=== PATIENT | male | born 1940 | race Caucasian/White ===

== ENCOUNTER 2019-07-27 11:54 | Inpatient (IN) | payer MEDICARE, OTHER, SELFPAY | END 2019-08-07 16:04 | disposition swing bed (61) | DRG 236 | PROVIDERS: Admitting Provider Thoracic Surgery (Cardiothoracic Vascular Surgery); Family Provider Pediatrics; Visit Provider Thoracic Surgery (Cardiothoracic Vascular Surgery) | DX: I25.10 Atherosclerotic heart disease of native coronary artery without angina pectoris (principal); N17.9 Acute kidney failure, unspecified; I50.22 Chronic systolic (congestive) heart failure; Z79.82 Long term (current) use of aspirin; E11.9 Type 2 diabetes mellitus without complications; Z79.84 Long term (current) use of oral hypoglycemic drugs; I48.91 Unspecified atrial fibrillation; E78.5 Hyperlipidemia, unspecified; I11.0 Hypertensive heart disease with heart failure; R00.1 Bradycardia, unspecified; Z87.891 Personal history of nicotine dependence ==

== ENCOUNTER → 2021-12-27 15:00 | Outpatient (BNVA) | payer MEDICARE, OTHER, SELFPAY | PROVIDERS: Family Provider Pediatrics; PCP Pediatrics; Visit Provider Internal Medicine Cardiovascular Disease | DX: I11.0 Hypertensive heart disease with heart failure (principal); I50.22 Chronic systolic (congestive) heart failure; I25.10 Atherosclerotic heart disease of native coronary artery without angina pectoris; Z95.1 Presence of aortocoronary bypass graft; E78.5 Hyperlipidemia, unspecified; I77.9 Disorder of arteries and arterioles, unspecified; Z87.891 Personal history of nicotine dependence | CPT/HCPCS: 99214 ==

== ENCOUNTER 2022-02-08 13:29 | Outpatient (CLI) | payer MEDICARE, OTHER, SELFPAY ==
--- NOTE | 2022-02-08 14:30 | USCV_ITS ---
Leo Orlando Age: 81 Gender: M : 1940 Exam Date: 02/08/2022 14:34 Ordering Phys: Lynette Bass MD ([email or web address]) Technologist: Vic Fried [place] [facility] [place]: carotid stenosis Risk Factors: Previous Vascular Surgery: Right Brachial BP: / Left Brachial BP: / Right Left Velocity (cm/s) Spectral Plaque Velocity (cm/s) Spectral Plaque Syst/Diast Broadening Syst/Diast Broadening 113.60/14.30 Prox CCA 101.40/ 18.70 73.90/ 16.50 Mid CCA 77.20 / 17.60 64.50/ 14.00 Distal CCA 97.00 / 15.40 100.80/12.80 Prox ICA 210.50/ 39.00 97.40/ 34.20 Mid ICA 159.20/ 34.20 101.00/33.40 Distal ICA 76.10 / 24.30 130.10 ECA 181.80 1.32 ICA/CCA 1.98 Antegrade Vertebral Antegrade 72.20/ 25.60 cm/s 48.90/ 11.70 cm/s Tri Subclavian Tri 149.9 131.5 0 0 FINDINGS Comparison:. 06/24/19. Diffuse bilateral scattered calcified plaque and intimal thickening throughout the common carotid arteries and extending through the bifurcation. Progression of plaque since the prior exams with increase in velocity. Mild bilateral carotid stenosis. Antegrade vertebral arteries. CONCLUSIONS Bilateral ICA stenosis less than 50%. Dr. Angely Gomez DO (Electronically Signed) Final Date: 08 February 2022 16:34 S
--- NOTE | 2022-02-08 15:15 | USCV_ITS ---
Leo Orlando Age: 81 Gender: M : 1940 Exam Date: 02/08/2022 14:02 Ordering Phys: Lynette Bass MD ([email or web address]) Technologist: Vic Fried Exam Location: [facility] [place] Indication: shortness of breath/ congestive heart failure BP: 118 / 58 HR: 65 Rhythm: Sinus Technical Quality: Adequate MEASUREMENTS (Male / Female) Normal Values 2D ECHO LV Diastolic Diameter PLAX 3.1 cm 4.2 - 5.9 / 3.9 - 5.3 cm LV Systolic Diameter PLAX 2.1 cm IVS Diastolic Thickness 1.1 cm 0.6 - 1.0 / 0.6 - 0.9 cm IVS Systolic Thickness 1.1 cm LVPW Diastolic Thickness 1.1 cm 0.6 - 1.0 / 0.6 - 0.9 cm LVPW Systolic Thickness 1.5 cm LVOT Diameter 2.2 cm LV Ejection Fraction 2D Teich 64.7 % LV Ejection Fraction MOD 2C 60.4 % LV Ejection Fraction 2C AL 59.7 % LA Diameter 3.1 cm LA Width 3.7 cm LA Height 4.7 cm RA Width 3.5 cm RA Height 5.4 cm Aorta at Sinotubular Diameter 4.0 cm IVC Diameter 1.4 cm M-MODE Aortic Annulus Diameter 3.2 cm LA Ao Ratio MM 1.0 MV E Point Septal Separation 0.9 cm DOPPLER AV Peak Velocity 146.8 cm/s LVOT Peak Velocity 109.0 cm/s AV Area Cont Eq vti 2.8 cm squared AV Area Cont Eq pk 2.8 cm squared MV Peak Velocity 127.0 cm/s MV Area PHT 3.7 cm squared Mitral E to A Ratio 0.7 MV E' Velocity 39.0 cm/s Mitral E to MV E' Ratio 5.7 Mitral E to LV E' Lateral Ratio 4.5 Mitral E to LV E' Septal Ratio 7.8 TR Peak Velocity 288.4 cm/s TR Peak Gradient 33.3 mmHg TR Mean Velocity 232.0 cm/s TR Mean Gradient 23.3 mmHg TR Velocity Time Integral 87.1 cm Right Atrial Pressure 3.0 mmHg Pulmonary Artery Systolic Pressu 36.3 mmHg RV Acceleration Time 0.1 s RV Ejection Time 0.3 s RV AcT/ET 0.4 FINDINGS Left Ventricle Normal left ventricular size, systolic function and wall thickness, with no regional wall motion abnormalities. Left ventricular ejection fraction is estimated at 60 %. Abnormal septal motion consistent with conduction abnormality. Indeterminate diastolic function. Right Ventricle Normal right ventricular size and systolic function. Right ventricular systolic pressure 28 mmHg. Right Atrium Normal right atrial size. Left Atrium Mildly increased left atrial size. Mitral Valve Mildly thickened mitral valve. No mitral valve stenosis. Mild mitral valve regurgitation. Aortic Valve Aortic valve not well visualized. No aortic valve stenosis. Mild aortic valve regurgitation. Tricuspid Valve Structurally normal tricuspid valve. Mild tricuspid valve regurgitation. Pulmonic Valve Pulmonic valve not well visualized. No pulmonary valve stenosis. Pericardium No pericardial effusion. Aorta Upper normal aortic root measured 40 mm. Mildly dilated ascending aorta measured 44 mm. IVC Normal IVC dimension with >50% respiratory change of the inferior vena cava. CONCLUSIONS 1. Normal left ventricular size, systolic function and wall thickness, with no regional wall motion abnormalities. Left ventricular ejection fraction is estimated at 60 %. Indeterminate diastolic function. 2. Normal right ventricular size and systolic function. 3. Mild mitral and tricuspid valve regurgitation. 4. Mild to moderate aortic valve regurgitation. 5. Upper normal aortic root measured 40 mm. Mildly dilated ascending aorta measured 44 mm. 6. When compared to previous study dated 06/02/2019, left ventricular systolic function has improved, mild aortic valve regurgitation and mildly dilated ascending aorta is noted now. Lynette Bass MD (Electronically Signed) Final Date: 08 February 2022 16:54 S
== END 2022-02-08 13:30 | disposition home or self-care (01) ==
PROVIDERS: PCP Pediatrics; Visit Provider Internal Medicine Cardiovascular Disease
DX: I65.23 Occlusion and stenosis of bilateral carotid arteries (principal)
CPT/HCPCS: 93306; 93880; C8929

== ENCOUNTER 2022-05-24 17:40 | Inpatient (IN) | payer MEDICARE, OTHER, SELFPAY ==
[2022-05-24 17:47] VITALS: BP 135/70; PULSE 64; RESP 14; TEMP 36.4; O2SAT 96; BMI 27.8
--- NOTE | 2022-05-24 17:50 | CTR_ITS ---
PROCEDURE INFORMATION: Exam: CT Head Without Contrast Exam date and time: 05/24/2022 6:55 PM Age: 81 years old Clinical indication: Altered mental status/memory loss; Additional info: AMS TECHNIQUE: Imaging protocol: Computed tomography of the head without contrast. Radiation optimization: All CT scans at this facility use at least one of these dose optimization techniques: automated exposure control; mA and/or kV adjustment per patient size (includes targeted exams where dose is matched to clinical indication); or iterative reconstruction. COMPARISON: MR head wo con* [id number] 06/24/2019 10:29 AM RADIATION DOSE METRICS: Total DLP (mGy-cm): 1012.58 FINDINGS: Brain: There is mild cortical atrophy. Low-density changes in the white matter are consistent with nonspecific small vessel chronic ischemic change. There is no intracranial mass, hemorrhage or edema. Cerebral ventricles: No ventriculomegaly. Paranasal sinuses: Visualized sinuses are unremarkable. No fluid levels. Mastoid air cells: Visualized mastoid air cells are well aerated. Bones/joints: Unremarkable. No acute fracture. Soft tissues: Unremarkable. CT/CT head wo con* [id number] IMPRESSION: No acute intracranial
--- NOTE | 2022-05-24 17:50 | XRR_ITS ---
PROCEDURE INFORMATION: Exam: XR Chest Exam date and time: 05/24/2022 5:59 PM Age: 81 years old Clinical indication: Chest wall pain and other: Vomitting; Prior surgery; Surgery date: 6+ months; Additional info: Vomiting/diaphoresis TECHNIQUE: Imaging protocol: Radiologic exam of the chest. Views: 1 view. COMPARISON: CR XR chest 1V [id number] 08/06/2019 5:14 AM FINDINGS: Lungs: There is some mild subsegmental atelectasis at the left lung base. Right lung is clear. Pleural spaces: Unremarkable. No pleural effusion. No pneumothorax. Heart/Mediastinum: Heart is upper limits normal in size. Bones/joints: Sternotomy wires and mediastinal surgical clips are present, consistent with previous coronary arterial bypass grafting. XR/XR chest 1V portable [id number] IMPRESSION: No acute infiltrate.
--- NOTE | 2022-05-24 17:57 | ECG_ITS ---
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 Measurements Intervals [place] Rate: 62 P: 11 ME: 213 QRS: 106 QRSD: 174 T: 84 QT: 458 QTc: 467 Interpretive Statements SINUS RHYTHM WITH FIRST DEGREE AV BLOCK RIGHT AXIS DEVIATION [QRS AXIS > 100] INTRAVENTRICULAR CONDUCTION DELAY [130+ ms QRS DURATION] INFERIOR MYOCARDIAL INFARCTION , PROBABLY OLD [40+ ms Q WAVE AND/OR ST/T ABNORMALITY IN II/aVF] Compared to ECG 08/06/2019 01:33:17 First degree AV block now present Sinus bradycardia no longer present Ventricular premature complex(es) no longer present Myocardial infarct finding still present Electronically Signed On 05-24-2022 20:48:13 CDT by Lynette Bass M.D. [email or web address] [facility] Advertisinglos [facility].[employer]/store/OM/[id number]
--- NOTE | 2022-05-24 18:06 | ED_ITS ---
HPI - Syncope General: Chief Complaint: Syncope Stated Complaint: SYNCOPE/ DIAPHORETIC/ VOMITTING Time Seen by Provider: 05/24/22 17:51 History of Present Illness: Mr. Orlando is a 81-year-old gentleman with significant past medical history of CAD, carotid disease, hypertension, hyperli pidemia, CHF, status post CABG, diabetes presenting to the emergency department due to syncope. 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 He subsequently had diaphoresis and one episode of nausea and vomiting with abdominal pain that is subsequently improved. Event was not obser annalee. Currently feels mildly ill but otherwise no focal or specific symptoms. No other specific changes in health, exacerbating, or alleviating factors identified. Onset (ago): minute(s) Witnessed: No Injuries sustained associated with event: none Associated symptoms: Reports lightheadedness, nausea and other History: history of CAD Review of Systems General: Reports: 10 or more systems reviewed and unremarkable except in HPI and below Card: Reports: lightheadedness GI: Reports: nausea PFSH ED PFSH: Medical History CAD (coronary artery disease) Carotid artery disease CHF (congestive heart failure) Coronary artery anomaly Diabetes Hyperlipidemia Hypertension Surgical History History of carpal tunnel surgery of left wrist History of prostate surgery S/P CABG x 4 S/P hernia repair S/P trigger finger release Family History Other CAD (coronary artery disease) Diabetes Social History Smoking and tobacco status: former smoker Alcohol intake: never History of recent travel: No Physical Exam Const: COMMON NORMALS: patient oriented x3 and alert GENERAL APPEARANCE: cooperative and well developed HENMT: COMMON NORMALS: normocephalic and atraumatic HEAD & SCALP: normocephalic and atraumatic Eye: COMMON NORMALS: conjunctivae normal CONJUNCTIVA: Yes conjunctivae normal SCLERA: sclerae normal Neck/C-Spine: COMMON NORMALS: supple GENERAL: Yes trachea midline Chest: OTHER: Old midline sternotomy incision Resp: COMMON NORMALS: normal respiratory effort and clear to auscultation bilaterally EFFORT & INSPECTION: Yes able to speak in complete sentences AUSCULTATION: clear to auscultation bilaterally Cardio: COMMON NORMALS: regular rate and regular rhythm RATE: regular rate RHYTHM: regular rhythm GI: COMMON NORMALS: Soft to palpation PALPATION: Yes Soft to palpation and No Tenderness to palpation present (GI) Extremity: GENERAL: Yes normal exam except as noted and Yes edema (1+ symmetric without overlying skin changes) Neuro: COMMON NORMALS: patient oriented x3, CN's II-XII intact bilaterally, moves all extremities, no focal motor deficits and no sensory deficits noted SENSORIUM/ORIENTATION: Yes alert and No Orientation impaired Psych: COMMON NORMALS: mental status grossly normal and Normal thought process present THOUGHT PROCESS: Normal thought process present Course ED course: - Patient was seen and evaluated by me at bedside - Patient placed on cardiac monitors, IV access obtained - Initial evaluation notable for exam as above. No focal neurologic deficits. - Labs and xrays personally interpreted by me. EKG shows a sinus rhythm with interventricular conduction delay and nonspecific ST segment abnormalities. No STEMI. - Labs notable for no leukocytosis, macrocytic anemia. Metabolic panel with minimal hyponatremia. Positive delta troponin. -Aspirin given. - Imaging notable for no lobar consolidation or pneumothorax on chest x-ray. CT head negative for acute intracranial hemorrhage or pathology to explain syncope - Upon serial reexamination after treatment the patient was similar - Based on patient history, evaluation, and testing as interpreted the most likely cause of the patient's condition is syncope with NSTEMI - The results of ED evaluation were discussed with the patient including plan for admission due to requirement for level of care not available if discharged to prevent significant worsening/deterioration. - Admitting service was contacted and Dr Sheriff with the hospital service agreed to admit the patient - Patient was admitted without further deterioration or significant events. Note: Click bubbles or prepopulated hicks in note writing are used for assistance with data collection and billing and are inherently more limited than narrative and other text portions of this note. Please use narrative for additional clinical history and defer to narrative/free test for any case of contradictory information. If information appears in only free text or click bubble it should be considered present or absent as reported. Please contact note administrative underwriter for clarifications of clinical information or contradictory information. MDM is a brief summary, contradictory or erroneous seeming information should be clarified and full note should be reviewed. Vital Signs: Vital signs: Vital Signs Temperature 97.7 F 05/27/22 08:00 Pulse Rate 75 05/27/22 09:55 Respiratory Rate 18 05/27/22 08:00 Blood Pressure 143/80 05/27/22 12:00 Pulse Oximetry 92 05/27/22 08:00 Oxygen Delivery Me thod 05/27/22 08:00 MDM - Syncope Medical Decision Making 81-year-old gentleman presenting due to syncope. Found to have positive delta troponin concern for cardiac etiology of event. Admitted for further management and cardiac evaluation. Medical Records I reviewed the patient's medical records. Lab Data I reviewed the patient's lab results. : 05/27/22 04:15 05/27/22 04:15 Radiology Impressions Chest X-Ray 05/24/22 17:50 IMPRESSION: No acute infiltrate. Head CT 05/24/22 17:50 IMPRESSION: No acute intracranial Laboratory Results WBC 6.0 10^3/uL (4.0-10.0) 05/24/22 18: RBC 3.63 10^6/uL (4.1-5.3) L 05/24/22 18: Hgb 11.0 g/dL (11.7-16.6) L 05/24/22 18: Hct 34.2 % (42.0-52.0) L 05/24/22 18: MCV 94.2 fl (80-94) H 05/24/22 18: MCH 30.3 pg (28.0-34.0) 05/24/22 18: MCHC 32.2 g/dL (30.0-36.0) 05/24/22 18: RDW 13.0 % (12.1-15.1) 05/24/22 18: Plt Count 138 10^3/cmm (130-400) 05/24/22 18:26 MPV 10.6 fL (7.4-10.4) H 05/24/22 18: Neut % (Auto) 73.3 % 05/24/22 18: Lymph % (Auto) 15.4 % 05/24/22 18: [place] % (Auto) 8.9 % 05/24/22 18: Eos % (Auto) 1.5 % 05/24/22 18: Baso % (Auto) 0.2 % 05/24/22 18: Neut # (Auto) 4.38 10^3/uL (1.8-7.7) 05/24/22 18: Lymph # (Auto) 0.9 10^3/uL (0.8-4.8) 05/24/22 18: [place] # (Auto) 0.5 10^3/uL (0.2-0.9) 05/24/22 18: Eos # (Auto) 0.1 10^3/uL (0.0-0.8) 05/24/22 18: Baso # (Auto) 0.0 10^3/uL (0.0-0.1) 05/24/22 18: Nucleated RBC % (auto) 0 % 05/24/22 18: Nucleated RBCs # 0.0 /100WBC 05/24/22 18: Sodium 134 mmol/L (136-145) L 05/24/22 18: Potassium 4.5 mmol/L (3.5-5.1) 05/24/22 18: Chloride 98 mmol/L (98-107) 05/24/22 18: Carbon Dioxide 26 mmol/L (22-29) 05/24/22 18: Anion Gap 14.5 (5-19) 05/24/22 18: BUN 15 mg/dL (8-23) 05/24/22 18: Creatinine 0.7 mg/dL (0.7-1.2) 05/24/22 18: GFR Calculation Not Reportable 05/24/22 18: Glucose 218 mg/dL (65-115) H 05/24/22 18: Calculated Osmolality 285 mOsm/kg (285-295) 05/24/22 18: Calcium 9.0 mg/dL (8.5-10.5) 05/24/22 18: Total Bilirubin 0.2 mg/dL (0.15-1.2) 05/24/22 18: AST 21 U/L (0-40) 05/24/22 18: ALT 18 U/L (0-41) 05/24/22 18:26 Alkaline Phosphatase 63 U/L (40-130) 05/24/22 18:26 Troponin T Baseline 30 ng/L (0-15) H 05/24/22 18:26 Troponin T 120 Minute 54.46 ng/L (0-15) H 05/24/22 20:19 Delta Troponin T 24.46 ABS# (0-10) H* 05/24/22 20:19 Troponin T Hi Sens 6Hr 59.68 ng/L (0-15) H 05/24/22 00:10 Troponin T Hi Sens 6Hr Delta 29.68 ng/L (0-12) H* 05/24/22 00:10 Total Protein 7.5 g/dL (6.6-8.7) 05/24/22 18:26 Albumin 4.1 g/dL (3.5-5.2) 05/24/22 18:26 Globulin 3.4 g/dL (1.3-4.6) 05/24/22 18:26 Lipase 23 U/L (13-60) 05/24/22 18:26 Salicylates < 0.3 mg/dL (3-10) L 05/24/22 18:26 Acetaminophen < 5.0 ug/mL (10-30) L 05/24/22 18:26 Discharge Plan Discharge Patient Disposition: Admitted As Inpatient Admit Provider: Abiodun Sheriff Clinical Impression: Acute non-ST elevation myocardial infarction (NSTEMI), Syncope and collapse Condition: Stable Discharge Diet: Cardiac Discharge Activity: Resume usual activity Coding Level of Care Code ED Special Events Assistant for [employer] Fwd Exam Comprehensive
[2022-05-24 18:29] VITALS: BP 131/65; PULSE 64; RESP 18; O2SAT 96
[2022-05-24 18:40] LABS: Basophils % 0.2 %; Eosinophils # 0.1 10^3/uL (0.0-0.8); Eosinophils % 1.5 %; Hematocrit 34.2 % (42.0-52.0); Lymphocytes # 0.9 10^3/uL (0.8-4.8); Lymphocytes % 15.4 %; Mean Corpuscular HGB Conc 32.2 g/dL (30.0-36.0); Mean Corpuscular Hemoglobin 30.3 pg (28.0-34.0); Mean Corpuscular Volume 94.2 fl (80-94); Mean Platelet Volume 10.6 fL (7.4-10.4); Monocytes # 0.5 10^3/uL (0.2-0.9); Monocytes % 8.9 %; Neutrophils # 4.38 10^3/uL (1.8-7.7); Neutrophils % 73.3 %; Nucleated Red Blood Cells % 0 %; Platelet Count 138 10^3/cmm (130-400); Red Blood Count 3.63 10^6/uL (4.1-5.3)
[2022-05-24 18:56] LABS: Troponin(5th) Baseline 30 ng/L (0-15)
[2022-05-24 18:57] LABS: Alanine Aminotransferase 18 U/L (0-41); Albumin Level 4.1 g/dL (3.5-5.2); Alkaline Phosphatase 63 U/L (40-130); Anion Gap 14.5 (5-19); Aspartate Amino Transferase 21 U/L (0-40); Blood Urea Nitrogen 15 mg/dL (8-23); Carbon Dioxide 26 mmol/L (22-29); Chloride 98 mmol/L (98-107); Globulin 3.4 g/dL (1.3-4.6); Glucose 218 mg/dL (65-115); Lipase 23 U/L (13-60); Osmolality Calculated 285 mOsm/kg (285-295); Potassium 4.5 mmol/L (3.5-5.1); Sodium 134 mmol/L (136-145); Total Bilirubin 0.2 mg/dL (0.15-1.2); Total Protein 7.5 g/dL (6.6-8.7)
[2022-05-24 18:58] LABS: Acetaminophen < 5.0 ug/mL (10-30); Salicylate < 0.3 mg/dL (3-10)
--- NOTE | 2022-05-24 18:58 | PC.NURSE ---
THIS NURSE TOOK OVER CARE AT 1900 FROM SIM MORELAND.
[2022-05-24 19:12] VITALS: BP 121/75; PULSE 72; RESP 24; O2SAT 97
--- NOTE | 2022-05-24 19:50 | ECG_ITS ---
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 Measurements Intervals [place] Rate: 69 P: 4 TN: 204 QRS: 111 QRSD: 164 T: 83 QT: 443 QTc: 475 Interpretive Statements SINUS RHYTHM INTRAVENTRICULAR CONDUCTION DELAY [130+ ms QRS DURATION] PROBABLE INFERIOR MYOCARDIAL INFARCTION , PROBABLY OLD [35 ms Q WAVE IN II/aVF] Compared to ECG 05/24/2022 17:57:45 First degree AV block no longer present Right-axis deviation no longer present Myocardial infarct finding still present Electronically Signed On 05-24-2022 21:05:25 CDT by Lynette Bass M.D. https://[email or web address] Privatemagnolia regional health centerDamage Houndsdetwiler memorial hospital.[employer]/store/OM/[id number]
[2022-05-24 20:00] VITALS: BP 123/68; PULSE 83; RESP 20; O2SAT 96
--- NOTE | 2022-05-24 20:29 | PC.NURSE ---
PATIENT PROVIDED WITH CRACKERS AND PB AND CAFFINE FREE DRINK. PATIENT HAS NO FURTHER NEEDS AT THIS TIME.
[2022-05-24 20:41] LABS: Troponin 5 2HR 54.46 ng/L (0-15)
[2022-05-24 20:49] LABS: Troponin 5 2HR Delta 24.46 ABS# (0-10)
[2022-05-24 20:53] VITALS: BP 112/57; BP 121/74; BP 123/68; BP 129/68; PULSE 79; PULSE 83; PULSE 89; RESP 20; O2SAT 96
[2022-05-24] MEDS: aspirin 81 mg Chew Tablet 324 MG PO (20:56)
--- NOTE | 2022-05-24 21:32 | P.HP_ITS ---
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 Loss of consciousness was unwitnessed. Patient has denied chest pain shortness of breath, headache, fever confusion. Though he says that they have been lately been under a lot of stress due to family reasons. Upon arrival in the ER he was worked up for above-mentioned complaint: Pertinent imaging studies: CT head without contrast: No acute intracranial pathology X-ray chest: No infiltrates no effusion no pneumothorax EKG: SINUS RHYTHM, INTRAVENTRICULAR CONDUCTION DELAY. Pertinent labs: WBC 6, H&H : : PLT : 138 , serum sodium 134 serum potassium 4.5, BUN and serum creatinine 15 and 0.7, random blood sugar 218, lipase 23 Troponin trend: - Review of Systems General: Reports: 10 or more systems reviewed and unremarkable except in HPI and below Const: Denies: fever(s), chills, body aches, change in appetite or diaphoresis Card: Denies: palpitations, edema, swelling of feet/ankles, dyspnea on exertion, orthopnea or leg pain with exertion Resp: Denies: dyspnea, productive cough, wheezing or pain on inspiration GI: Reports: abdominal pain, nausea and vomiting; Denies: diarrhea or constipation : Denies: flank pain or difficulty urinating Musc: Denies: back pain, extremity pain or extremity swelling Neuro: Denies: headache(s), difficulty walking or confusion Medications/Allergies Home Medications Medication Instructions Recorded Confirmed Last Taken Type metformin 1,000 mg 24 hr 1,000 mg PO BID 08/11/19 12/14/20 Unknown History tablet,extended release atorvastatin 40 mg tablet 40 mg PO QDAY 08/27/19 12/14/20 Unknown History aspirin 81 mg tablet,delayed 81 mg PO DAILY 07/22/20 12/14/20 Unknown History release cinnamon bark 500 mg capsule 500 mg PO DAILY 07/22/20 12/14/20 Unknown History (Cinnamon) tamsulosin 0.4 mg capsule 0.4 mg PO DAILY 07/22/20 12/14/20 Unknown History acetaminophen 325 mg tablet 325 mg PO QID PRN 12/14/20 12/14/20 Unknown History (Tylenol) metoprolol tartrate 25 mg tablet 25 mg PO BID #180 tabs 04/24/21 Unknown Rx cholecalciferol (vitamin D3) 25 1,000 unit PO BID 12/27/21 Unknown History mcg (1,000 unit) capsule gabapentin 300 mg capsule 300 mg PO DAILY 12/27/21 Unknown History hempvana topical 12/27/21 Unknown History insulin glargine 100 unit/mL 10 unit SUBCUT DAILY 12/27/21 Unknown History subcutaneous solution (Lantus U-100 Insulin) insulin lispro 100 unit/mL 3 - 5 unit SUBCUT DAILY 12/27/21 Unknown History subcutaneous pen (Humalog KwikPen (U-100) Insulin) mecobalamin (vitamin B12) 1,000 1,000 mcg PO DAILY 12/27/21 Unknown History mcg chewable tablet tumeric PO 12/27/21 Unknown History Allergies Allergy/AdvReac Type Severity Reaction Status Date / Time Mphjjkw-DRP-FzP Reductase Allergy muscle pain Verified 08/11/19 13:50 Inhibitor [Clahivv-Ijd-Aku Reductase Inhibitor] PFSH Acute PFSH: Medical History CAD (coronary artery disease) Carotid artery disease CHF (congestive heart failure) Coronary artery anomaly Diabetes Hyperlipidemia Hypertension Surgical History History of carpal tunnel surgery of left wrist History of prostate surgery S/P CABG x 4 S/P hernia repair S/P trigger finger release Family History Other CAD (coronary artery disease) Diabetes Social History Smoking and tobacco status: former smoker Alcohol intake: never History of recent travel: No Vitals/I&O/Wt Last Vital Signs Temp 97.6 F 05/24/22 17:47 Pulse 79 05/24/22 20:53 Resp 20 H 05/24/22 20:53 BP 121/74 10/13/22 20:53 Pulse Ox 96 05/24/22 20:53 O2 Del Method 05/24/22 20:53 Weight last 48 hrs Weight 68.946 kg Physical Exam Const: COMMON NORMALS: patient oriented x3 HENMT: COMMON NORMALS: normocephalic and atraumatic HEAD & SCALP: normocephalic and atraumatic Resp: COMMON NORMALS: clear to auscultation bilaterally EFFORT & INSPECTION: Yes symmetric chest movement AUSCULTATION: clear to auscultation bilaterally Cardio: COMMON NORMALS: regular rate, regular rhythm, S1 normal heart sound present, S2 normal heart sound present, No gallops present (Cardio), No rub (Cardio) and Peripheral pulses 2+ throughout RATE: regular rate RHYTHM: regular rhythm HEART SOUNDS: S1 normal heart sound present and S2 normal heart sound present PERIPHERAL PULSES: Peripheral pulses 2+ throughout OTHER: Diastolic murmur in aortic area GI: COMMON NORMALS: Normal to inspection, nondistended, normoactive bowel sounds present, Soft to palpation, non-tender, No hepatosplenomegaly present and no masses AUSCULTATION: Yes normoactive bowel sounds PALPATION: Yes Soft to palpation and Yes No hepatosplenomegaly present RECTAL EXAM: Yes deferred Extremity: COMMON NORMALS: no clubbing, cyanosis or edema and no pedal edema Neuro: COMMON NORMALS: patient oriented x3 Data : 05/24/22 18:26 05/24/22 18:26 A&P Assessment and plan (1) Acute non-ST elevation myocardial infarction (NSTEMI): (2) Syncope and collapse: (3) CAD (coronary artery disease): (4) Hypertension: Qualifiers: Hypertension type: essential hypertension Qualified Code(s): I10 - Essential (primary) hypertension (5) S/P CABG x 4: (6) CHF (congestive heart failure): Qualifiers: Heart failure chronicity: chronic Heart failure type: systolic Qualified Code(s): I50.22 - Chronic systolic (congestive) heart failure Plan 81 year old male with past medical history of hypertension diabetes dyslipidemia coronary artery disease status post CABG x4 on July 27, 2019?came in today with chief complaint of acute loss of consciousness 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 Loss of consciousness was unwitnessed. Assessment: NSTEMI seems to be likely type II Syncope History of coronary artery disease s/p CABG Hypertension Diabetes Dyslipidemia Plan: Follow 2D echo Recent 2D echo done in January has been reviewed. Patient has recent carotid Doppler study done in January: Which has shown bilateral ICA stenosis less than 50% Continue aspirin and statin, beta-cristina, sublingual nitro as needed. Patient has received 1 dose of therapeutic Lovenox. LDSSI,FSG, diabetic diet N.p.o. after midnight Cardiology consult in a.m. if needed Telemetry monitoring Orthostatic vital signs check CODE STATUS: Full code DVT prophylaxis: On Lovenox Attestations Medical Necessity Statement*: Patient is to be in hospital for management of NSTEMI syncope. Anticipated to stay greater than 2 midnights. Time Spent in Patient Care: Greater than 35 minutes (>than 50% of time spent in counselling and/or direct pt care on unit) . Coding Level of Care Code Acute Physiologist for [facility] Fwd Exam Detailed Diagnoses Acute non-ST elevation myocardial infarction (NSTEMI) I21.4 Syncope and collapse R55 CAD (coronary artery disease) I25.10 Hypertension I10 Hypertension type: essential hypertension S/P CABG x 4 Z95.1 CHF (congestive heart failure) I50.22 Heart failure chronicity: chronic Heart failure type: systolic
[2022-05-24 22:16] VITALS: BP 135/74; PULSE 86; RESP 23; O2SAT 95
[2022-05-24] MEDS: atorvastatin 40 mg Tablet PO (22:22)
[2022-05-24] MEDS: enoxaparin 80 mg/0.8 mL Syringe 70 MG SUBCUT (22:23)
--- NOTE | 2022-05-24 23:25 | ECG_ITS ---
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 Measurements Intervals [place] Rate: 70 P: 11 MD: 195 QRS: 103 QRSD: 160 T: 79 QT: 452 QTc: 488 Interpretive Statements SINUS RHYTHM RIGHT AXIS DEVIATION [QRS AXIS > 100] INTRAVENTRICULAR CONDUCTION DELAY [130+ ms QRS DURATION] PROBABLE INFERIOR MYOCARDIAL INFARCTION , PROBABLY OLD [35 ms Q WAVE IN II/aVF] Compared to ECG 05/24/2022 19:41:08 Right-axis deviation now present Myocardial infarct finding still present Electronically Signed On 05-25-2022 16:36:22 CDT by Jose A Stein M.D. [id number]
[2022-05-25] VITALS (15 sets, daily range): BP systolic 104–137; BP diastolic 47–74; PULSE 56–86; RESP 15–25; TEMP 36.6–36.8; O2SAT 93–97
[2022-05-25 00:34] LABS: Troponin 5 6HR 59.68 ng/L (0-15)
[2022-05-25 01:04] LABS: Troponin 5 6HR Delta 29.68 ng/L (0-12)
[2022-05-25 05:25] LABS: Basophils % 0.2 %; Eosinophils # 0.1 10^3/uL (0.0-0.8); Eosinophils % 1.1 %; Hematocrit 35.6 % (42.0-52.0); Hemoglobin 11.4 g/dL (11.7-16.6); Lymphocytes # 1.3 10^3/uL (0.8-4.8); Lymphocytes % 19.3 %; Mean Corpuscular Hemoglobin 30.2 pg (28.0-34.0); Mean Corpuscular Volume 94.2 fl (80-94); Mean Platelet Volume 10.9 fL (7.4-10.4); Monocytes # 0.6 10^3/uL (0.2-0.9); Monocytes % 9.7 %; Neutrophils # 4.48 10^3/uL (1.8-7.7); Neutrophils % 68.9 %; Nucleated Red Blood Cells % 0 %; Platelet Count 141 10^3/cmm (130-400); Red Blood Count 3.78 10^6/uL (4.1-5.3); Red Cell Distribution Width 13.1 % (12.1-15.1); White Blood Count 6.5 10^3/uL (4.0-10.0)
[2022-05-25 05:39] LABS: INR 1.11 (0.8-1.2)
[2022-05-25 05:55] LABS: Alanine Aminotransferase 17 U/L (0-41); Albumin Level 3.7 g/dL (3.5-5.2); Alkaline Phosphatase 65 U/L (40-130); Aspartate Amino Transferase 18 U/L (0-40); Blood Urea Nitrogen 14 mg/dL (8-23); Calcium 9.1 mg/dL (8.5-10.5); Carbon Dioxide 27 mmol/L (22-29); Chloride 99 mmol/L (98-107); Globulin 3.3 g/dL (1.3-4.6); Glucose 265 mg/dL (65-115); Magnesium 1.8 mg/dL (1.7-2.3); Osmolality Calculated 298 mOsm/kg (285-295); Phosphorus 3.2 mg/dL (2.5-4.5); Sodium 139 mmol/L (136-145); Total Bilirubin 0.3 mg/dL (0.15-1.2)
[2022-05-25 06:00] LABS: NT Pro B Type Natriuretic Pept 1709 pg/mL (0-450)
[2022-05-25 06:28] LABS: Glucose Point of Care 264 mg/dL (70-110)
[2022-05-25] MEDS: atorvastatin 40 mg Tablet PO (08:10)
[2022-05-25] MEDS: insulin lispro 100 unit/1 mL SUBCUT ×3 (08:10→18:19)
[2022-05-25] MEDS: aspirin 81 mg EC Tablet PO (08:10)
--- NOTE | 2022-05-25 08:56 | PC.PHAR ---
pt states he takes care of his own medications-pt states he takes metoprolol tartrate half a tab (12.5mg) bid rx filled 04/18/22 90d/s for 25mg bid-notes are made in the pharmacy comments
--- NOTE | 2022-05-25 10:29 | PC.CHAP ---
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 [] Patient/Family/Request visit [] Outpatient visit [] Follow-up visit [] Physician referral [] Code/Alert [x] Routine visit [] Staff referral [] Actively dying [] Patient sleeping [] Family support [] [] Out of room [] Palliative care [] [] Receiving care in room [] Pre-surgical visit [] Trauma [] Long length of stay [] ICU visit [] Other: Relational/Emotional Strength [] Patient feels connected with others/family/visitors/staff [] Distress [] Loneliness/isolation [] Abandonment Spirituality of Patient [] Person of Elise [] Attends Religion of their Elise [] Believes in Prayer [] Reads Bible or Protestant materials [] There are Spiritual issues to be addressed Agriscience Technology Instructor Interventions [x] Prayer [x] Active listening [] Non-anxious presence [] Spiritual/emotional support [] Crisis/trauma care [] Spiritual counseling [] Bereavement support [] Provided bereavement packet [] Provided Bible/devotional materials [] Provided toy/stuffed animal, coloring book to patient or family member [] Provided Communion [] Anointing/[place] [] Salvation [x] Completed spiritual assessment [] Other: Impact on Illness or Injury [] Angry [] Fearful [] Anxious [] Often cries [] Exhaustion [] Unable to work [] Unable to attend bahai [] Unable to walk/stand [] Unable to read [] Unable to drive [] Unable to eat/drink [] Unable to sleep [] Unable to be with family [] Patient intubated [] Other: Summary Time spent with patient 5 min
[2022-05-25 10:57] LABS: Glucose Point of Care 148 mg/dL (70-110)
[2022-05-25] MEDS: enoxaparin 80 mg/0.8 mL Syringe 70 MG SUBCUT ×2 (12:50→22:22)
--- NOTE | 2022-05-25 13:19 | P.CONIM_ITS ---
Providers/Reason For Consult Consulting Physician/Specialty*: David Carmen MD/Cardiology Reason for Consult*: NSTEMI/ Syncope Requesting Physician: Dr Lisa Attending Physician: Griselda Lisa MD Primary Care Provider: Ambika Cotter MD History of Present Illness History of Present Illness Leo Orlando is a 81 year old male with past medical history of hypertension, dyslipidemia, diabetes, coronary artery disease with four-vessel CABG in 2019 presented to the hospital with episode of syncope. After he regained consciousness, he was diaphoretic and nauseous. Also had episode of vomiting. No one witnessed syncopal episode. Denied chest pain. EKG shows sinus rhythm with interventricular conduction delay. Initial troponin was 30 that trended up to 60. Review of Systems General: Reports: 10 or more systems reviewed and unremarkable except in HPI and below Const: Denies: fever(s), chills, body aches, change in appetite or diaphoresis Card: Denies: palpitations, edema, swelling of feet/ankles, dyspnea on exertion, orthopnea or leg pain with exertion Resp: Denies: dyspnea, productive cough, wheezing or pain on inspiration GI: Reports: abdominal pain, nausea and vomiting; Denies: diarrhea or constipation : Denies: flank pain or difficulty urinating Musc: Denies: back pain, extremity pain or extremity swelling Neuro: Denies: headache(s), difficulty walking or confusion Medications/Allergies Home Medications Medication Instructions Recorded Confirmed Last Taken Type atorvastatin 40 mg tablet 40 mg PO BEDTIME 08/27/19 05/25/22 Unknown History aspirin 81 mg tablet,delayed 81 mg PO QAM 07/22/20 05/25/22 Unknown History release cinnamon bark 500 mg capsule 500 mg PO QAM 07/22/20 05/25/22 Unknown History (Cinnamon) tamsulosin 0.4 mg capsule 0.4 mg PO BEDTIME 07/22/20 05/25/22 Unknown History cholecalciferol (vitamin D3) 25 1,000 unit PO BID 12/27/21 05/25/22 Unknown History mcg (1,000 unit) capsule gabapentin 300 mg capsule 300 mg PO BEDTIME 12/27/21 05/25/22 Unknown History insulin lispro 100 unit/mL 3 - 5 unit SUBCUT .QPM-AC 12/27/21 05/25/22 Unknown History subcutaneous pen (Humalog KwikPen (U-100) Insulin) mecobalamin (vitamin B12) 1,000 1,000 mcg PO QPM 12/27/21 05/25/22 Unknown History mcg chewable tablet acetaminophen 650 mg 1,300 mg PO Q8H PRN Pain 05/25/22 05/25/22 Unknown History tablet,extended release finasteride 5 mg tablet 5 mg PO QAM 05/25/22 05/25/22 Unknown History insulin glargine 100 unit/mL (3 6 - 8 unit SUBCUT QPM 05/25/22 05/25/22 Unknown History mL) subcutaneous pen (Lantus Solostar U-100 Insulin) metformin 1,000 mg tablet 1,000 mg PO BID 05/25/22 05/25/22 Unknown History metoprolol tartrate 25 mg tablet 12.5 mg PO BID 05/25/22 05/25/22 Unknown History turmeric 400 mg capsule 400 mg PO DAILY 05/25/22 05/25/22 Unknown History Allergies Allergy/AdvReac Type Severity Reaction Status Date / Time Pplfgie-AWY-OwC Reductase Allergy muscle pain Verified 05/25/22 08:55 Inhibitor [Byzcygu-Ovg-Lrc Reductase Inhibitor] Current Medications Generic Name Dose Route Start Last Admin Trade Name Freq PRN Reason Stop Dose Admin Aspirin 81 mg 05/25/22 09:00 05/25/22 08:10 Aspirin 81 Mg Ec Tablet PO 81 mg DAILY DAVION Administration Atorvastatin Calcium 40 mg 05/24/22 21:30 05/25/22 08:10 Atorvastatin 40 Mg Tablet PO 40 mg DAILY DAVION Administration Enoxaparin Sodium 70 mg 05/25/22 11:00 05/25/22 12:50 Enoxaparin 80 Mg/0.8 Ml Syringe SUBCUT 70 mg Q12H DAVION Administration Insulin Human Lispro 0 unit 05/25/22 08:00 05/25/22 12:50 Insulin Lispro 100 Unit/1 Ml SUBCUT 2 unit TIDWM DAVION Administration Protocol Metoprolol Tartrate 25 mg 05/25/22 09:00 05/25/22 11:22 Metoprolol Tartrate 25 Mg Tablet PO Not Given BID DAVION PFSH Acute PFSH: Medical History CAD (coronary artery disease) Carotid artery disease CHF (congestive heart failure) Coronary artery anomaly Diabetes Hyperlipidemia Hypertension Surgical History History of carpal tunnel surgery of left wrist History of prostate surgery S/P CABG x 4 S/P hernia repair S/P trigger finger release Family History Other CAD (coronary artery disease) Diabetes Social History Smoking and tobacco status: former smoker Alcohol intake: never History of recent travel: No Vitals/I&O/Wt Last Vital Signs Temp 98.1 F 05/25/22 11:20 Pulse 61 05/25/22 11:20 Resp 15 05/25/22 11:20 BP 113/65 05/25/22 11:20 Pulse Ox 95 05/25/22 11:20 O2 Del Method 05/25/22 11:20 05/24/22 05/25/22 05/25/22 22:59 06:59 14:59 Intake Total 100 / 100 Output Total 350 / 350 Balance -250 / -250 Weight last 48 hrs Weight 154 lb 3.2 oz Weight 152 lb Physical Exam Const: COMMON NORMALS: patient oriented x3 HENMT: COMMON NORMALS: normocephalic and atraumatic HEAD & SCALP: normocephalic and atraumatic Resp: COMMON NORMALS: clear to auscultation bilaterally EFFORT & INSPECTION: Yes symmetric chest movement AUSCULTATION: clear to auscultation bilaterally Cardio: COMMON NORMALS: regular rate, regular rhythm, S1 normal heart sound present, S2 normal heart sound present, No gallops present (Cardio), No rub (Cardio) and Peripheral pulses 2+ throughout RATE: regular rate RHYTHM: regular rhythm HEART SOUNDS: S1 normal heart sound present and S2 normal heart sound present PERIPHERAL PULSES: Peripheral pulses 2+ throughout OTHER: Diastolic murmur in aortic area GI: COMMON NORMALS: Normal to inspection, nondistended, normoactive bowel sounds present, Soft to palpation, non-tender, No hepatosplenomegaly present and no masses AUSCULTATION: Yes normoactive bowel sounds PALPATION: Yes Soft to palpation and Yes No hepatosplenomegaly present RECTAL EXAM: Yes deferred Extremity: COMMON NORMALS: no clubbing, cyanosis or edema and no pedal edema Neuro: COMMON NORMALS: patient oriented x3 Data : 05/26/22 05:00 05/26/22 05:00 A&P Assessment and plan (1) Acute non-ST elevation myocardial infarction (NSTEMI): (2) Syncope and collapse: (3) Hyperlipidemia: (4) Carotid artery disease: (5) CAD (coronary artery disease): (6) Hypertension: Qualifiers: Hypertension type: essential hypertension Qualified Code(s): I10 - Essential (primary) hypertension Plan Patient has presented with syncopal episode. Troponin have trended up significantly. Denies chest pain. However was nauseous and diaphoretic afterwards. Plan for coronary angiogram with possible percutaneous coronary intervention. N.p.o. past midnight. Risks and benefit of the procedure been discussed with the patient he understands the risks and benefits and wants to proceed with the procedure. Continue aspirin. Start plavix Continue anticoagulation Echo shows normal LV systolic function Telemetry monitoring Thank you for involving us with care of this patient. We will continue to follow. 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
--- NOTE | 2022-05-25 15:43 | P.PN_ITS ---
Subjective Subjective: Patient not having any active chest pain at this time. Denies nausea vomiting at this time. Family at bedside. Patient is n.p.o. today. He was told he will be going for cath. Discussed with cardiology. They will see patient in consultation. Tentatively plan for cath tomorrow morning. Patient and family updated they are okay with this. Vitals/I&O/Wt Last Vital Signs Temp 98.1 F 05/25/22 15:36 Pulse 86 05/25/22 15:36 Resp 25 H 05/25/22 15:36 BP 114/58 05/25/22 15:36 Pulse Ox 93 05/25/22 15:36 O2 Del Method 05/25/22 15:36 05/25/22 05/25/22 05/25/22 06:59 14:59 22:59 Intake Total 100 / 100 90 / 90 Output Total 350 / 350 Balance -250 / -250 90 / 90 Weight last 48 hrs Weight 69.944 kg Weight 68.946 kg Physical Exam Const: COMMON NORMALS: patient oriented x3 HENMT: COMMON NORMALS: normocephalic and atraumatic HEAD & SCALP: normoceph alic and atraumatic Resp: COMMON NORMALS: clear to auscultation bilaterally EFFORT & INSPECTION: Yes symmetric chest movement AUSCULTATION: clear to auscultation bilaterally Cardio: COMMON NORMALS: regular rate, regular rhythm, S1 normal heart sound present, S2 normal heart sound present, No gallops present (Cardio), No rub (Cardio) and Peripheral pulses 2+ throughout RATE: regular rate RHYTHM: regular rhythm HEART SOUNDS: S1 normal heart sound present and S2 normal heart sound present PERIPHERAL PULSES: Peripheral pulses 2+ throughout OTHER: Diastolic murmur in aortic area GI: COMMON NORMALS: Normal to inspection, nondistended, normoactive bowel sounds present, Soft to palpation, non-tender, No hepatosplenomegaly present and no masses AUSCULTATION: Yes normoactive bowel sounds PALPATION: Yes Soft to palpation and Yes No hepatosplenomegaly present RECTAL EXAM: Yes deferred Extremity: COMMON NORMALS: no clubbing, cyanosis or edema and no pedal edema Neuro: COMMON NORMALS: patient oriented x3 Data : 05/25/22 04:30 05/25/22 04:30 A&P Assessment and plan (1) Acute non-ST elevation myocardial infarction (NSTEMI): (2) Syncope and collapse: (3) CAD (coronary artery disease): (4) Hypertension: Qualifiers: Hypertension type: essential hypertension Qualified Code(s): I10 - Essential (primary) hypertension (5) S/P CABG x 4: (6) CHF (congestive heart failure): Qualifiers: Heart failure type: systolic Heart failure chronicity: chronic Qualified Code(s): I50.22 - Chronic systolic (congestive) heart failure Plan 81 year old male with past medical history of hypertension diabetes dyslipidemia coronary artery disease status post CABG x4 on July 27, 2019?came in today with chief complaint of acute 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 Loss of consciousness was unwitnessed. Assessment: NSTEMI seems to be likely type II Syncope History of coronary artery disease s/p CABG Hypertension Diabetes Dyslipidemia Plan: Follow 2D echo Recent 2D echo done in January has been reviewed. Patient has recent carotid Doppler study done in January: Which has shown bilateral ICA stenosis less than 50% Continue aspirin and statin, beta-cristina, sublingual nitro as needed. Continue patient on therapeutic Lovenox.. LDSSI,FSG, diabetic diet N.p.o. after midnight Cardiology consulted. Plan for cath in a.m. Telemetry monitoring Orthostatic vital signs check CODE STATUS: Full code DVT prophylaxis: On therapeutic Lovenox Attestations Medical Necessity Statement*: Patient is to be in hospital for management of NSTEMI syncope. Anticipated to stay greater than 2 midnights. Time Spent in Patient Care: Greater than 35 minutes (>than 50% of time spent in counselling and/or direct pt care on unit) . Coding Level of Care Code Acute Direct Support Worker for [facility] Diagnoses Acute non-ST elevation myocardial infarction (NSTEMI) I21.4 Syncope and collapse R55 CAD (coronary artery disease) I25.10 Hypertension I10 Hypertension type: essential hypertension S/P CABG x 4 Z95.1 CHF (congestive heart failure) I50.22 Heart failure type: systolic Heart failure chronicity: chronic
[2022-05-25 16:52] LABS: Glucose Point of Care 241 mg/dL (70-110)
[2022-05-25 21:01] LABS: Glucose Point of Care 148 mg/dL (70-110)
--- NOTE | 2022-05-25 21:52 | USCV_ITS ---
AnabellacaitLeo Age: 81 Gender: M : 1940 Exam Date: 05/25/2022 03:30 Ordering Phys: Abiodun Sheriff MD Technologist: KRISTI Exam Location: [facility] [place] Indication: NSTEMI. BP: 135 / 74 HR: 66 Rhythm: Sinus Technical Quality: Adequate MEASUREMENTS (Male / Female) Normal Values 2D ECHO LV Diastolic Diameter PLAX 4.0 cm 4.2 - 5.9 / 3.9 - 5.3 cm LV Systolic Diameter PLAX 3.2 cm IVS Diastolic Thickness 1.5 cm 0.6 - 1.0 / 0.6 - 0.9 cm IVS Systolic Thickness 2.0 cm LVPW Diastolic Thickness 1.7 cm 0.6 - 1.0 / 0.6 - 0.9 cm LVPW Systolic Thickness 1.7 cm LVOT Diameter 2.2 cm LV Ejection Fraction 2D Teich 39.5 % LV Ejection Fraction MOD 2C 69.4 % LV Ejection Fraction 2C AL 68.6 % LA Diameter 3.9 cm LA Width 4.6 cm LA Height 6.1 cm RA Width 5.2 cm RA Height 5.3 cm Aorta at Sinotubular Diameter 4.3 cm IVC Diameter 1.8 cm M-MODE Aortic Annulus Diameter 4.2 cm LA Ao Ratio MM 0.8 MV E Point Septal Separation 1.2 cm DOPPLER AV Peak Velocity 120.0 cm/s LVOT Peak Velocity 92.0 cm/s AV Area Cont Eq vti 2.7 cm squared AV Area Cont Eq pk 2.8 cm squared MV Area PHT 3.3 cm squared Mitral E to A Ratio 0.7 MV E' Velocity 41.5 cm/s Mitral E to MV E' Ratio 8.9 Mitral E to LV E' Lateral Ratio 7.7 Mitral E to LV E' Septal Ratio 10.8 TR Peak Velocity 259.0 cm/s TR Peak Gradient 26.8 mmHg TV Peak E Velocity 43.0 cm/s Right Atrial Pressure 10.0 mmHg Pulmonary Artery Systolic Pressu 36.8 mmHg PV Peak Velocity 93.0 cm/s RV Acceleration Time 0.1 s RV Ejection Time 0.4 s RV AcT/ET 0.2 FINDINGS Left Ventricle Normal left ventricular size and systolic function, EF 69 %. No regional wall motion abnormalities. Moderate left ventricular hypertrophy. Right Ventricle Normal right ventricular size and systolic function. Right Atrium Mildly increased right atrial size. Left Atrium Mildly increased left atrial size. Mitral Valve Mild-moderate mitral valve regurgitation. Aortic Valve Thickened aortic valve. Mild aortic valve regurgitation. Tricuspid Valve Trace tricuspid valve regurgitation. Pulmonic Valve Pulmonic valve not well visualized. Pericardium Normal pericardium without effusion. Aorta Normal ascending aorta dimension. IVC Normal inferior vena cava. CONCLUSIONS Normal left ventricular size and systolic function, EF 69 %. No regional wall motion abnormalities. Moderate left ventricular hypertrophy. Mild biatrial enlargement Mild-moderate mitral valve regurgitation. Thickened aortic valve. Mild aortic valve regurgitation. Trace tricuspid valve regurgitation. Estimated pulmonary artery peak systolic pressure 37 mmHg There is no pericardial effusion. There are no intracardiac masses. Mildly dilated aortic root, measuring 4.3 cm at the level of the sinuses Compared to the study from 02/08/2022, there may not be significant change Dr Jose A Stein MD FACC (Electronically Signed) Final Date: 25 May 2022 13:45 S
--- NOTE | 2022-05-25 22:15 | PC.NURSE ---
Called and spoke with regarding the patient scheduled for cardiac cath tomorrow and is scheduled for lovenox shot tonight. said ok to give patient his lovenox tonight.
[2022-05-26] VITALS (75 sets, daily range): BP systolic 82–140; BP diastolic 47–91; PULSE 51–84; RESP 1–26; TEMP 36.6–37.2; O2SAT 90–99
[2022-05-26 05:36] LABS: Basophils % 0.1 %; Eosinophils # 0.2 10^3/uL (0.0-0.8); Eosinophils % 2.8 %; Hematocrit 36.4 % (42.0-52.0); Hemoglobin 11.7 g/dL (11.7-16.6); Lymphocytes # 1.6 10^3/uL (0.8-4.8); Lymphocytes % 23.8 %; Mean Corpuscular HGB Conc 32.1 g/dL (30.0-36.0); Mean Corpuscular Hemoglobin 30.5 pg (28.0-34.0); Mean Corpuscular Volume 94.8 fl (80-94); Mean Platelet Volume 10.7 fL (7.4-10.4); Monocytes # 0.7 10^3/uL (0.2-0.9); Monocytes % 9.8 %; Neutrophils # 4.29 10^3/uL (1.8-7.7); Neutrophils % 63.1 %; Nucleated Red Blood Cells % 0 %; Platelet Count 143 10^3/cmm (130-400); Red Blood Count 3.84 10^6/uL (4.1-5.3); Red Cell Distribution Width 13.2 % (12.1-15.1); White Blood Count 6.8 10^3/uL (4.0-10.0)
[2022-05-26] MEDS: sodium chloride 0.9% 1,000 ML 50 ML IV (05:51)
[2022-05-26 06:05] LABS: Alanine Aminotransferase 16 U/L (0-41); Albumin Level 3.5 g/dL (3.5-5.2); Alkaline Phosphatase 63 U/L (40-130); Anion Gap 13.7 (5-19); Aspartate Amino Transferase 17 U/L (0-40); Blood Urea Nitrogen 15 mg/dL (8-23); Carbon Dioxide 27 mmol/L (22-29); Chloride 103 mmol/L (98-107); Globulin 3.6 g/dL (1.3-4.6); Glucose 155 mg/dL (65-115); Osmolality Calculated 292 mOsm/kg (285-295); Potassium 4.7 mmol/L (3.5-5.1); Sodium 139 mmol/L (136-145); Total Bilirubin 0.4 mg/dL (0.15-1.2); Total Protein 7.1 g/dL (6.6-8.7)
[2022-05-26 06:32] LABS: Glucose Point of Care 158 mg/dL (70-110)
[2022-05-26] MEDS: diphenhydrAMINE 50 mg Capsule PO (07:08)
--- NOTE | 2022-05-26 07:34 | XACV_ITS ---
Exam Room: [facility] Ht: 157 cm Wt: 68 kg BSA: 1.75 m2 Gender: Male : 1940 Any Known Allergies: Other Exam Priority: Routine Procedure(s): Procedure Description: Diagnostic procedure Procedure Description: PCI procedure Procedure Description: Venous Graft Catheterization Procedure Description: WOODRUFF Graft Catheterization Procedure Description: Drug Eluting Coronary Stent Procedure Description: PTCA Procedure Description: Coronary Angiography Diagnostic Cath Status: Urgent Diagnostic Findings * INDICATION: 81 year old male with past medical history of hypertension, dyslipidemia, diabetes, coronary artery disease with four-vessel CABG in 2019 presented to the hospital with episode of syncope. After he regained consciousness, he was diaphoretic and nauseous. Also had episode of vomiting. No one witnessed syncopal episode. Denied chest pain. EKG shows sinus rhythm with interventricular conduction delay. Initial troponin was 30 that trended up to 60. * Left main artery: Patent LAD: Proximally occluded with competitive flow seen from WOODRUFF Left circumflex artery distally occluded. 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 RCA: Gives rise to a large sized RV marginal branch. Distal RCA is occluded Grafts: SVG to distal RCA: Graft is patent. [place] artery post anastomosis has a severe 80 to 90% stenosis. It is a large sized vessel. SVG to OM: Patent SVG to ramus artery: Patent WOODRUFF to LAD: Patent. * Coronary angiography shows right dominance. PCI Status: Urgent PCI Indication: NSTE - ACS Interventional Findings * Edema to * distal RCA: 80 to 90% stenosis treated with a AB TREK 2.50X12 RX BALLOON, and GILLIAN Ruiz JANY 2.5X18 SHARON. 0% residual stenosis, RICHARD: 3 flow. * Procedure detail. We engaged SVG to RCA with a JR4 guide catheter. IV heparin was administered to maintain ACT above 250 yes. 0.014 run-through guidewire was used to cross SVG to RCA lesion and was put in distal RCA. We used a 2.5 x 12 mm semicompliant balloon to predilate the stenosis. This was followed by placement of 2.5 x 18 mm resolute [place] drug-eluting stent. At this time final angiogram was performed that showed excellent stent expansion, no residual stenosis and RICHARD-3 flow. Guidewire and guide catheter were removed. Patient left the Metalsmith in a stable condition.. Conclusions 1. Left main artery: Patent LAD: Proximally occluded with competitive flow seen from WOODRUFF Left circumflex artery distally occluded. 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 RCA: Gives rise to a large sized RV marginal branch. Distal RCA is occluded Grafts: SVG to distal RCA: Graft is patent. [place]enton artery post anastomosis has a severe 80 to 90% stenosis. It is a large sized vessel. SVG to OM: Patent SVG to ramus artery: Patent WOODRUFF to LAD: Patent. 2. S/p successful revascularization of distal RCA post anastomosis of the SVG graft. 3. Patient has prior CABG. Recommendations * Aspirin and Plavix for at least 1 year. * High intensity statin therapy. * Outpatient cardiology follow-up in 4 weeks. Interventional RX Recommendation: PCI w/o planned CABG Diagnostic RX Recommendation: PCI w/o planned CABG Anticoagulation: Heparin Pressures Phase:Rest AO : 124 / 50 ( 78 ) @ 9:21:00 AM 111 / 59 ( 82 ) @ 9:27:00 AM 121 / 63 ( 89 ) @ 9:30:00 AM 127 / 66 ( 93 ) @ 9:32:00 AM 124 / 64 ( 91 ) @ 9:42:00 AM 147 / 66 ( 100 ) @ 10:00:00 AM Clinical Evaluation EBL: 5mL-10mL Procedural Details Procedure Consent Obtained. Current Diagnosis : NSTEMI. Pre-Procedure Time Out. Identified patient by full name and date of as verbalized by the patient/guarantor. Does the consent match the physician's order: Yes. Accurate & Complete Informed Consent: Yes. Inpatient/Outpatient History & Physical on Chart: Yes. If H&P is completed, is and addenduem needed: No; If yes, is the addendum complete: N/A. Visualize and Verify Site with Patient/Guarantor: N/A. Relevant Radiology Images available: Yes. Pre-op teaching completed and patient verbalized understanding. The risks, benefits, and alternatives of sedation and/or procedure were discussed by physician. The patient agrees to continue. Procedure started. [facility] Clinical Fraility Score: 4: Vulnerable. Metalsmith Indications: ACS > 24 hours. Chest Pain Symptom Assessment: Atypical Angina. Correct patient, site and procedure confirmed by cath team. Current diagnosis: NSTEMI. PERRLA. Strong, equal hand hvac journeyman bilaterally. Lungs clear x 5 lobes. IV Site on Arrival: 20 gauge in the left anticubital. IV Fluids: 0.9% NaCl at KVO. 0 mL infused prior to cathode builder. Oxygen started at 2liters/min via nasal canula. bilateral groins was prepped with chloroprep then draped in the usual sterile fashion. Baseline sample Acquired. HR: 82 BPM. Physician arrived. Physician scrubbed in. Immediate Pre-Procedure Time Out. Correct Patient: Yes; Correct Procedure: Yes; Correct Site: Yes; Correct Patient Position: Yes; Correct Supplies: Yes; Dried Flammable Prep: Yes; Blood Products Available: N/A;. Lidocaine 1% infiltrated to the right groin. Arterial access obtained with micropuncture set. wire and needle out. Arterial access obtained with micropuncture set. 6Fr sheath exchanged for a 6Fr 45cm Flexor sheath. A 5 polish JL4 catheter in over wire. Catheter removed over the standard wire. A 5 polish JL5 catheter in over wire. Multiple views taken of left coronary artery. Catheter removed over the standard wire. A 5 polish JR4 catheter in over wire. Multiple views taken of right coronary artery. SVG's to PLV visualized and patent. SVG's to OM visualized and patent. glidewire inserted through the catheter. Inventory is TR Glidewire Angled .035 260cm. wire out. WOODRUFF to LAD visualized. Catheter removed over the standard wire. A 5 polish AL1 catheter in over wire. SVG's to OM visualized and patent. SVG's to Ramus visualized and patent. Catheter removed over the standard wire. Physician review of cine films. Family updated. 6 polish JR 4 guide catheter was inserted over the wire. Runthrough guidewire was advanced through the guide catheter to lesion in the PLV. Inventory is 360Guanxitronic [place] XT .014 190cm Str. Guidewire. Inventory is TR 180cm Runthrough NS extra floppy 0.014 wire. Inflation number : 1 A AB TREK 2.50X12 RX BALLOON was prepped and advanced across the 1st RPL , then inflated to 8 CARITO for 0:16 seconds. Inflation number: 2 The AB TREK 2.50X12 RX BALLOON was reinflated across the 1st RPL, to 8 CARITO for 0:16 seconds. Inflation Number : 3 A GILLIAN Ruiz JANY 2.5X18 SHARON -Lot Number# _[id number] EXP:10/03/2024 was prepped and advanced across the 1st RPL. The stent was deployed at 12 CARITO for 0:20 seconds. Stent balloon out over wire. Results checked. Wire out. Results checked. Guide catheter out. ACT drawn. Results 204 seconds. Therapeutic limits - pre-heparin administration 90-150 seconds and monitoring heparin during a vascular procedure >250 seconds. The 6Fr Flexor sheath exchanged for a short 6Fr sheath. A Right femoral angiogram was performed to determine safe placement of closure device. A Suture was successful obtaining hemostatsis at the Right Femoral artery insertion site. Sheath(s) sutured into position with 2-0 silk and sterile 4x4's and Op-site applied over the site. No oozing or signs and symptoms of hematoma noted. Arterial sheath flushed and connected to tranducer and pressure bag with heparinized saline. Post Procedure: Pulses reassessed and unchanged. PERRLA. Strong, equal hand hvac journeyman bilaterally. No VTE prophylaxis required. Total IV fluids: 40 mL. Complications: None. Estimated blood loss: 5mL-10mL. Responsiveness - Normal response to verbal stimuli; alert and oriented, PERRLA. Airway - Unaffected, no intervention required; spontaneous ventilation. Circulation: W/N/L, pulses unchanged. Nausea/Vomiting: No. Procedure completed. Patient transferred by bed to [facility]. Vital chart was stopped. Access Site Site: Right Femoral artery Sheath Size: 6 Fr Hemostasis Method: Suture Hemostasis Success: Successful Procedure Medications Start: 8:04 AM Stop: 8:04 AM Medication: Versed Amount: 1 mg Route: I.V. Start: 8:04 AM Stop: 8:04 AM Medication: Fentanyl Amount: 50 mcg Route: I.V. Start: 8:48 AM Stop: 8:48 AM Medication: Heparin Amount: 6000 units Route: I.V. Start: 9:02 AM Stop: 9:02 AM Medication: Plavix Amount: 600 mg Route: P.O. Start: 9:05 AM Stop: 9:05 AM Medication: Heparin Amount: 3000 units Route: I.V. Start: 9:11 AM Stop: 9:11 AM Medication: Aspirin Amount: 81 mg Route: P.O. I, the attending physician, have reviewed and verified all procedure medications. Yes, all medications given per verbal order History/Risk Factors Hypertension: Yes Dyslipidemia: Yes Peripheral Arterial Disease (PAD): No Myocardial Infarction (LA): No Obesity: No Renal Disease: No Prior Interventions PCI: No CABG: Yes Valve Surgery: No Report Signatures Finalized by David Carmen MD on 05/30/2022 07:01 PM
--- NOTE | 2022-05-26 08:03 | W.PM.OPSUD ---
Surgery/Procedure H&P Update DATE OF PROCEDURE: May 26, 2022 DATE H&P PERFORMED: 05/25/22 H&P UPDATE INFORMATION: I have reviewed H&P completed within last 30 days, I have examined patient prior to procedure and No changes to prior documentation PLANNED PROCEDURE: Operation Date: 05/26/22 08:00 Proposed Procedures p Cardiac Catheterization(Left) - David Carmen M.D Possible percutaneous coronary intervention PATIENT REASSESSED PRIOR TO SEDATION, WITH NO CHANGE NOTED: Yes PHYSICAL EXAM: alert, oriented x 3 and clear to auscultation bilaterally AIRWAY EVAL/ANESTHESIA PLAN: ASA III, Local Anesthesia, Risks, benefits & alternatives of sedation and/or procedure discussed and Patient agrees to continue as planned ADDITIONAL INFORMATION: Moderate sedation
[2022-05-26] MEDS: atorvastatin 40 mg Tablet PO (09:37)
[2022-05-26] MEDS: metoprolol tartrate 25 mg Tablet PO (09:37)
[2022-05-26 11:04] LABS: Glucose Point of Care 219 mg/dL (70-110)
--- NOTE | 2022-05-26 12:01 | P.PN_ITS ---
Subjective Subjective: seen this am. he is s/p cath. 1 SHARON placed. Final report pending Family at bedside Still a little sedated but able to answer questions Vitals/I&O/Wt Last Vital Signs Temp 98.0 F 05/26/22 08:00 Pulse 71 05/26/22 09:42 Resp 16 05/26/22 08:00 BP 140/91 05/26/22 08:00 Pulse Ox 96 05/26/22 09:42 O2 Del Method 05/26/22 09:42 05/25/22 05/26/22 05/26/22 22:59 06:59 14:59 Intake Total 356 / 446 120 / 566 Output Total 350 / 350 Balance 356 / 446 120 / 566 -350 / -350 Weight last 48 hrs Weight 68.719 kg Weight 69.944 kg Weight 68.946 kg Physical Exam Const: COMMON NORMALS: patient oriented x3 HENMT: COMMON NORMALS: normocephalic and atraumatic HEAD & SCALP: normocephalic and atraumatic Resp: COMMON NORMALS: clear to auscultation bilaterally EFFORT & INSPECTION: Yes symmetric chest movement AUSCULTATION: clear to auscultation bilaterally Cardio: COMMON NORMALS: regular rate, regular rhythm, S1 normal heart sound present, S2 normal heart sound present, No gallops present (Cardio), No rub (Cardio) and Peripheral pulses 2+ throughout RATE: regular rate RHYTHM: regular rhythm HEART SOUNDS: S1 normal heart sound present and S2 normal heart sound present PERIPHERAL PULSES: Peripheral pulses 2+ throughout OTHER: Diastolic murmur in aortic area GI: COMMON NORMALS: Normal to inspection, nondistended, normoactive bowel sounds present, Soft to palpation, non-tender, No hepatosplenomegaly present and no masses AUSCULTATION: Yes normoactive bowel sounds PALPATION: Yes Soft to palpation and Yes No hepatosplenomegaly present RECTAL EXAM: Yes deferred Extremity: COMMON NORMALS: no clubbing, cyanosis or edema and no pedal edema Neuro: COMMON NORMALS: patient oriented x3 Data : 05/26/22 05:00 05/26/22 05:00 A&P Assessment and plan (1) Acute non-ST elevation myocardial infarction (NSTEMI): (2) Syncope and collapse: (3) CAD (coronary artery disease): (4) Hypertension: Qualifiers: Hypertension type: essential hypertension Qualified Code(s): I10 - Essential (primary) hypertension (5) S/P CABG x 4: (6) CHF (congestive heart failure): Qualifiers: Heart failure type: systolic Heart failure chronicity: chronic Qualified Code(s): I50.22 - Chronic systolic (congestive) heart failure Plan 81 year old male with past medical history of hypertension diabetes dyslipidemia coronary artery disease status post CABG x4 on July 27, 2019?came in today with chief complaint of acute 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 Loss of consciousness was unwitnessed. Assessment: NSTEMI Syncope History of coronary artery disease s/p CABG Hypertension Diabetes Dyslipidemia Plan: Echo complete. See report. Recent 2D echo done in January has been reviewed. Patient has recent carotid Doppler study done in January: Which has shown bilateral ICA stenosis less than 50% Continue aspirin and statin, beta-cristina, sublingual nitro as needed. S/p cath. 1 SHARON placed. Details pending. COntinue post-procedural care. LDSSI,FSG, diabetic diet Cardiac diet. Cardiology consulted. appreciate recs Telemetry monitoring CODE STATUS: Full code DVT prophylaxis: lovenox Attestations Medical Necessity Statement*: Patient is to be in hospital for management of NSTEMI syncope. Anticipated to stay greater than 2 midnights. Time Spent in Patient Care: Greater than 35 minutes (>than 50% of time spent in counselling and/or direct pt care on unit) . Coding Level of Care Code Acute Operator [employer] for Allie Rodrigues Diagnoses Acute non-ST elevation myocardial infarction (NSTEMI) I21.4 Syncope and collapse R55 CAD (coronary artery disease) I25.10 Hypertension I10 Hypertension type: essential hypertension S/P CABG x 4 Z95.1 CHF (congestive heart failure) I50.22 Heart failure type: systolic Heart failure chronicity: chronic
[2022-05-26 12:54] LABS: Partial Thromboplastin Time 159.8 SECONDS (23.9-36.7)
[2022-05-26] MEDS: HYDROcodone-acetaminophen 5-325 mg Tablet 1 TAB PO (13:20)
[2022-05-26] MEDS: insulin lispro 100 unit/1 mL SUBCUT (13:21)
--- NOTE | 2022-05-26 14:16 | PM.PN ---
Subjective Subjective: Patient's coronary angiogram showed patent WOODRUFF to LAD, SVG to ramus, SVG to left circumflex artery and patent SVG to RCA however [place] RCA after anastomosis had a severe 90% stenosis. Underwent successful revascularization with placement of SHARON x1. Patient is stable. Denies chest pain Vitals/I&O/Wt Last Vital Signs Temp 98.0 F 05/26/22 08:00 Pulse 54 L 05/26/22 12:00 Resp 17 05/26/22 12:00 BP 109/47 05/26/22 12:00 Pulse Ox 96 05/26/22 12:00 O2 Del Method 05/26/22 12:00 05/25/22 05/26/22 05/26/22 22:59 06:59 14:59 Intake Total 356 / 446 120 / 566 Output Total 650 / 650 Balance 356 / 446 120 / 566 -650 / -650 Weight last 48 hrs Weight 151 lb 8 oz Weight 154 lb 3.2 oz Weight 152 lb Physical Exam Narrative: GENERAL: Patient is alert, awake and oriented x3. [] NECK: No jugular vein distension. [] HEENT: No cyanosis. No icterus. No pallor. [] HEART: Regular S1 and S2. No murmur, rub or gallop. [] LUNGS: Clear to auscultate bilaterally. [] ABDOMEN: Soft, nontender and nondistended. Positive bowel sounds. No guarding, rebound or tenderness. [] CENTRAL NERVOUS SYSTEM: Grossly nonfocal. [] EXTREMITIES: Lower extremities with 1+ edema bilaterally. Pulses palpable in the lower extremities, both dorsalis pedis and posterior tibial. [] Data : 05/26/22 18:20 05/26/22 05:00 A&P Assessment and plan (1) Acute non-ST elevation myocardial infarction (NSTEMI): (2) Syncope and collapse: (3) Hyperlipidemia: (4) Carotid artery disease: (5) CAD (coronary artery disease): (6) Hypertension: Qualifiers: Hypertension type: essential hypertension Qualified Code(s): I10 - Essential (primary) hypertension Plan Patient underwent successful revascularization of united [place] RCA post SVG anastomosis. Aspirin and Plavix for at least 1 year Echo shows normal LV systolic function Telemetry monitoring. Rule out orthostatic hypotension. Thank you for involving us with care of this patient. We will continue to follow. Please call with questions Attestations Medical Necessity Statement*: Care expected to cross 2 midnights Coding Level of Care Code Acute Newspaper Deliverer for Allie Fwkelin Diagnoses Acute non-ST elevation myocardial infarction (NSTEMI) I21.4 Syncope and collapse R55 Hyperlipidemia E78.5 Carotid artery disease I77.9 CAD (coronary artery disease) I25.10 Hypertension I10 Hypertension type: essential hypertension
[2022-05-26] MEDS: sodium chloride 0.9% 250 ML IV (16:15)
[2022-05-26] MEDS: sodium chloride 0.9% 1,000 ML 100 ML IV (16:46)
[2022-05-26 17:15] LABS: Glucose Point of Care 129 mg/dL (70-110)
--- NOTE | 2022-05-26 17:46 | ECG_ITS ---
[facility] Test Date: 2022-05-26 Pat Name: Leo Orlando Department: Room: 276 Gender: Male Hospice Manager: : 1940 Requested By: David Carmen Order Number: [id number] Maureen MD: David Carmen M.D. Measurements Intervals [place] Rate: 61 P: 17 [place]: 181 QRS: 108 QRSD: 162 T: 104 QT: 507 QTc: 511 Interpretive Statements SINUS RHYTHM WITH SINUS ARRHYTHMIA RIGHT AXIS DEVIATION [QRS AXIS > 100] RIGHT BUNDLE BRANCH BLOCK [120+ ms QRS DURATION, UPRIGHT V1, 40+ ms S IN I/aVL/V4/V5/V6] Compared to ECG 05/24/2022 23:25:16 Right bundle-branch block now present Intraventricular conduction delay no longer present Myocardial infarct finding no longer present Electronically Signed On 05-27-2022 22:00:12 CDT by David Carmen M.D. [id number]
[2022-05-26 18:35] LABS: Hemoglobin 11.1 g/dL (11.7-16.6)
[2022-05-26 21:01] LABS: Glucose Point of Care 310 mg/dL (70-110)
--- NOTE | 2022-05-26 23:34 | PC.NURSE ---
Assisted patient sit up side of the bed. Patient c/o slight dizziness initially. Patient able to stand upright by himself. Returned to bed.
[2022-05-27 04:34] VITALS: BP 129/74; PULSE 74; RESP 15; TEMP 36.7; O2SAT 97
[2022-05-27 05:04] LABS: Basophils % 0.2 %; Eosinophils # 0.1 10^3/uL (0.0-0.8); Eosinophils % 1.5 %; Hematocrit 33.8 % (42.0-52.0); Hemoglobin 10.8 g/dL (11.7-16.6); Lymphocytes # 1.3 10^3/uL (0.8-4.8); Lymphocytes % 20.2 %; Mean Corpuscular Hemoglobin 29.9 pg (28.0-34.0); Mean Corpuscular Volume 93.6 fl (80-94); Mean Platelet Volume 10.6 fL (7.4-10.4); Monocytes # 0.7 10^3/uL (0.2-0.9); Monocytes % 10.6 %; Neutrophils % 67.2 %; Nucleated Red Blood Cells % 0 %; Platelet Count 124 10^3/cmm (130-400); Red Blood Count 3.61 10^6/uL (4.1-5.3); Red Cell Distribution Width 13.2 % (12.1-15.1); White Blood Count 6.5 10^3/uL (4.0-10.0)
[2022-05-27 05:32] LABS: Alanine Aminotransferase 15 U/L (0-41); Albumin Level 3.4 g/dL (3.5-5.2); Alkaline Phosphatase 64 U/L (40-130); Aspartate Amino Transferase 17 U/L (0-40); Blood Urea Nitrogen 15 mg/dL (8-23); Calcium 8.6 mg/dL (8.5-10.5); Carbon Dioxide 25 mmol/L (22-29); Chloride 102 mmol/L (98-107); Globulin 3.3 g/dL (1.3-4.6); Glucose 155 mg/dL (65-115); Osmolality Calculated 280 mOsm/kg (285-295); Sodium 133 mmol/L (136-145); Total Bilirubin 0.4 mg/dL (0.15-1.2); Total Protein 6.7 g/dL (6.6-8.7)
[2022-05-27 06:00] VITALS: PULSE 65
[2022-05-27 06:56] LABS: Glucose Point of Care 153 mg/dL (70-110)
[2022-05-27 08:00] VITALS: BP 130/62; PULSE 79; RESP 18; TEMP 36.5; O2SAT 92
[2022-05-27] MEDS: metoprolol tartrate 25 mg Tablet PO (08:58)
[2022-05-27] MEDS: clopidogrel 75 mg Tablet PO (08:58)
[2022-05-27] MEDS: atorvastatin 40 mg Tablet PO (08:58)
[2022-05-27] MEDS: insulin lispro 100 unit/1 mL SUBCUT ×2 (08:58→12:32)
[2022-05-27] MEDS: aspirin 81 mg EC Tablet PO (08:58)
[2022-05-27 09:55] VITALS: BP 100/56; BP 101/58; BP 97/60; PULSE 75; PULSE 83; PULSE 88
--- NOTE | 2022-05-27 10:20 | P.DS_ITS ---
Discharge Providers Date of Admission: 05/24/22 21:07 Date of Discharge: May 27, 2022 Attending Provider at Admission: Abiodun Sheriff MD Attending Provider at Discharge: Griselda Lisa MD Primary Care Provider: Ambika Cotter MD Diagnoses at Discharge Discharge Diagnosis (1) Acute non-ST elevation myocardial infarction (NSTEMI): Status: Acute (2) Syncope and collapse: Status: Acute (3) Hyperlipidemia: Status: Acute (4) Carotid artery disease: Status: Acute (5) CAD (coronary artery disease): Status: Acute (6) Hypertension: Status: Acute Qualifiers: Hypertension type: essential hypertension Qualified Code(s): I10 - Essential (primary) hypertension Reason for Visit Reason for Visit: SYNCOPE/ DIAPHORETIC/ VOMITTING Brief History: Leo Orlando is a 81 year old male with past medical history of hypertension diabetes dyslipidemia coronary artery disease status post?CABG x4 on July 27, 2019?came in today with chief complaint of acute loss of consciousness 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 Loss of consciousness was unwitnessed. Patient has denied chest pain shortness of breath, headache, fever confusion. Though he says that they have been lately been under a lot of stress due to family reasons. Upon arrival in the ER he was worked up for above-mentioned complaint: Pertinent imaging studies: CT head without contrast: No acute intracranial pathology X-ray chest: No infiltrates no effusion no pneumothorax EKG: SINUS RHYTHM, INTRAVENTRICULAR CONDUCTION DELAY. Pertinent labs: WBC 6, H&H : : PLT : 138 , serum sodium 134 serum potassium 4.5, BUN and serum creatinine 15 and 0.7, random blood sugar 218, lipase 23 Troponin trend: 30-54 -59 Hospital Course Hospital Course Admitted for NSTEMI and syncope. Patient went for angiogram and received 1 stent to [place] artery. Please see cardiology note for further details. Orthostatic vitals negative. Patient worked with PT as well. Discharged home in stable condition. Patient to follow-up with cardiology outpatient and his primary care doctor. He was advised to return to the ER if he has any more worsening of symptoms or any new symptoms develop. All questions answered. Physical Exam Const: COMMON NORMALS: patient oriented x3 HENMT: COMMON NORMALS: normocephalic and atraumatic HEAD & SCALP: normocephalic and atraumatic Resp: COMMON NORMALS: clear to auscultation bilaterally EFFORT & INSPECTION: Yes symmetric chest movement AUSCULTATION: clear to auscultation bilaterally Cardio: COMMON NORMALS: regular rate, regular rhythm, S1 normal heart sound present, S2 normal heart sound present, No gallops present (Cardio), No rub (Cardio) and Peripheral pulses 2+ throughout RATE: regular rate RHYTHM: regular rhythm HEART SOUNDS: S1 normal heart sound present and S2 normal heart sound present PERIPHERAL PULSES: Peripheral pulses 2+ throughout OTHER: Diastolic murmur in aortic area GI: COMMON NORMALS: Normal to inspection, nondistended, normoactive bowel sounds present, Soft to palpation, non-tender, No hepatosplenomegaly present and no masses AUSCULTATION: Yes normoactive bowel sounds PALPATION: Yes Soft to palpation and Yes No hepatosplenomegaly present RECTAL EXAM: Yes deferred Extremity: COMMON NORMALS: no clubbing, cyanosis or edema and no pedal edema Neuro: COMMON NORMALS: patient oriented x3 Discharge Data Studies Completed and Pending Completed Studies During Hospitalization Category Date Time Status CT head wo con* [id number] Stat Cat Scan 05/24/22 17:50 Completed XR chest 1V portable [id number] Stat Exams 05/24/22 17:50 Completed CV. echo complete* [id number] Routine Ultrasound 05/25/22 21:52 Completed Pending at discharge Category Date Time Status PROGRAM CLINICIAN request for service Routine Exams 05/26/22 07:34 Taken Radiology Impressions Chest X-Ray 05/24/22 17:50 IMPRESSION: No acute infiltrate. Head CT 05/24/22 17:50 IMPRESSION: No acute intracranial Laboratory Results WBC 6.5 10^3/uL (4.0-10.0) 05/27/22 04:15 RBC 3.61 10^6/uL (4.1-5.3) L 05/27/22 04:15 Hgb 10.8 g/dL (11.7-16.6) L 05/27/22 04:15 Hct 33.8 % (42.0-52.0) L 05/27/22 04:15 MCV 93.6 fl (80-94) 05/27/22 04:15 MCH 29.9 pg (28.0-34.0) 05/27/22 04:15 MCHC 32.0 g/dL (30.0-36.0) 05/27/22 04:15 RDW 13.2 % (12.1-15.1) 05/27/22 04:15 Plt Count 124 10^3/cmm (130-400) L 05/27/22 04:15 MPV 10.6 fL (7.4-10.4) H 05/27/22 04:15 Neut % (Auto) 67.2 % 05/27/22 04:15 Lymph % (Auto) 20.2 % 05/27/22 04:15 [place] % (Auto) 10.6 % 05/27/22 04:15 Eos % (Auto) 1.5 % 05/27/22 04:15 Baso % (Auto) 0.2 % 05/27/22 04:15 Neut # (Auto) 4.40 10^3/uL (1.8-7.7) 05/27/22 04:15 Lymph # (Auto) 1.3 10^3/uL (0.8-4.8) 05/27/22 04:15 [place] # (Auto) 0.7 10^3/uL (0.2-0.9) 05/27/22 04:15 Eos # (Auto) 0.1 10^3/uL (0.0-0.8) 05/27/22 04:15 Baso # (Auto) 0.0 10^3/uL (0.0-0.1) 05/27/22 04:15 Nucleated RBC % (auto) 0 % 05/27/22 04:15 Nucleated RBCs # 0.0 /100WBC 05/27/22 04:15 PT 14.60 SECONDS (12.1-14.9) 05/25/22 04:30 INR 1.11 (0.8-1.2) 05/25/22 04:30 APTT 32.0 SECONDS (23.9-36.7) D 05/26/22 15:53 Sodium 133 mmol/L (136-145) L 05/27/22 04:15 Potassium 4.0 mmol/L (3.5-5.1) 05/27/22 04:15 Chloride 102 mmol/L (98-107) 05/27/22 04:15 Carbon Dioxide 25 mmol/L (22-29) 05/27/22 04:15 Anion Gap 10.0 (5-19) 05/27/22 04:15 BUN 15 mg/dL (8-23) 05/27/22 04:15 Creatinine 0.7 mg/dL (0.7-1.2) 05/27/22 04:15 GFR Calculation Not Reportable 05/27/22 04:15 Glucose 155 mg/dL (65-115) H 05/27/22 04:15 POC Glucose 153 mg/dL (70-110) H 05/27/22 06:52 Calculated Osmolality 280 mOsm/kg (285-295) L 05/27/22 04:15 Calcium 8.6 mg/dL (8.5-10.5) 05/27/22 04:15 Phosphorus 3.2 mg/dL (2.5-4.5) 05/25/22 04:30 Magnesium 1.8 mg/dL (1.7-2.3) 05/25/22 04:30 Total Bilirubin 0.4 mg/dL (0.15-1.2) 05/27/22 04:15 AST 17 U/L (0-40) 05/27/22 04:15 ALT 15 U/L (0-41) 05/27/22 04:15 Alkaline Phosphatase 64 U/L (40-130) 05/27/22 04:15 Troponin T Baseline 30 ng/L (0-15) H 05/24/22 18:26 Troponin T 120 Minute 54.46 ng/L (0-15) H 05/24/22 20:19 Delta Troponin T 24.46 ABS# (0-10) H* 05/24/22 20:19 Troponin T Hi Sens 6Hr 59.68 ng/L (0-15) H 05/24/22 00:10 Troponin T Hi Sens 6Hr Delta 29.68 ng/L (0-12) H* 05/24/22 00:10 NT-Pro-B Natriuret Pep 1709 pg/mL (0-450) H 05/25/22 04:30 Total Protein 6.7 g/dL (6.6-8.7) 05/27/22 04:15 Albumin 3.4 g/dL (3.5-5.2) L 05/27/22 04:15 Globulin 3.3 g/dL (1.3-4.6) 05/27/22 04:15 Lipase 23 U/L (13-60) 05/24/22 18:26 Salicylates < 0.3 mg/dL (3-10) L 05/24/22 18:26 Acetaminophen < 5.0 ug/mL (10-30) L 05/24/22 18:26 Vitals Last Vital Signs Temp 97.7 F 05/27/22 08:00 Pulse 75 05/27/22 09:55 Resp 18 05/27/22 08:00 BP 101/58 05/27/22 09:55 Pulse Ox 92 05/27/22 08:00 O2 Del Method 05/27/22 08:00 Discharge Plan Discharge Patient Disposition: Home Condition: Stable Prescriptions: New clopidogrel 75 mg Tablet 75 mg PO DAILY 30 Days Qty: 30 0RF Continued aspirin 81 mg tablet,delayed release (DR/EC) 81 mg PO QAM cinnamon bark [Cinnamon] 500 mg capsule 500 mg PO QAM cholecalciferol (vitamin D3) 25 mcg (1,000 unit) capsule 1,000 unit PO BID atorvastatin 40 mg tablet 40 mg PO BEDTIME tamsulosin 0.4 mg capsule 0.4 mg PO BEDTIME mecobalamin (vitamin B12) 1,000 mcg tablet,chewable 1,000 mcg PO QPM gabapentin 300 mg capsule 300 mg PO BEDTIME insulin lispro [Humalog KwikPen Insulin] 100 unit/mL insulin pen 3 - 5 unit SUBCUT .QPM-AC acetaminophen 650 mg Tablet Extended Release 1,300 mg PO Q8H PRN (Reason: Pain) finasteride 5 mg tablet 5 mg PO QAM metoprolol tartrate 25 mg tablet 12.5 mg PO BID Lantus Solostar U-100 Insulin 100 unit/mL (3 mL) insulin pen 6 - 8 unit SUBCUT QPM turmeric 400 mg Capsule 400 mg PO DAILY Held metformin 1,000 mg tablet 1,000 mg PO BID Hold Instructions: Resume on 05/29/22. Discharge Orders: Discharge Order (Routine); Ordered 05/27/22 Ordered By: Griselda Lisa Referrals: Ambika Cotter MD [Primary Care Provider] - 4-7 days America Gil FNP [Nurse Practitioner] - 7-10 days Lynette Bass MD [Physician] - 1 month Discharge Diet: Cardiac Discharge Activity: Resume usual activity Patient Instructions: Clopidogrel (By mouth) (Plavix), Syncope in Older Adults (DC), Chest Pain Stoplight, Post Angiogram Home Care Instructions Activity Restrictions/Additional Instructions: Please return to ER if you experience any worsening symptoms or new symptoms develop. Discharge Attestations Time Spent in Discharge Care*: less than 30 min Quality Metrics Clinical Quality Measures [ No reported AMI, CVA or VTE this stay] Coding Level of Care Code Acute Chg FW DC note Diagnoses Acute non-ST elevation myocardial infarction (NSTEMI) I21.4 Syncope and collapse R55 Hyperlipidemia E78.5 Carotid artery disease I77.9 CAD (coronary artery disease) I25.10 Hypertension I10 Hypertension type: essential hypertension
--- NOTE | 2022-05-27 10:26 | PM.PN ---
Subjective Subjective: Patient is overall stable. Underwent successful revascularization of [place] RCA after anastomosis of SVG. Vitals/I&O/Wt Last Vital Signs Temp 97.7 F 05/27/22 08:00 Pulse 75 05/27/22 09:55 Resp 18 05/27/22 08:00 BP 101/58 05/27/22 09:55 Pulse Ox 92 05/27/22 08:00 O2 Del Method 05/27/22 08:00 05/26/22 05/27/22 05/27/22 22:59 06:59 14:59 Intake Total 370 / 370 Output Total 300 / 950 545 / 1495 300 / 300 Balance 70 / -580 -545 / -1125 -300 / -300 Weight last 48 hrs Weight 151 lb 8 oz Physical Exam Narrative: GENERAL: Patient is alert, awake and oriented x3. [] NECK: No jugular vein distension. [] HEENT: No cyanosis. No icterus. No pallor. [] HEART: Regular S1 and S2. No murmur, rub or gallop. [] LUNGS: Clear to auscultate bilaterally. [] ABDOMEN: Soft, nontender and nondistended. Positive bowel sounds. No guarding, rebound or tenderness. [] CENTRAL NERVOUS SYSTEM: Grossly nonfocal. [] EXTREMITIES: Lower extremities with 1+ edema bilaterally. Pulses palpable in the lower extremities, both dorsalis pedis and posterior tibial. [] Data : 05/27/22 04:15 05/27/22 04:15 A&P Assessment and plan (1) Acute non-ST elevation myocardial infarction (NSTEMI): (2) Syncope and collapse: (3) Hyperlipidemia: (4) Carotid artery disease: (5) CAD (coronary artery disease): (6) Hypertension: Qualifiers: Hypertension type: essential hypertension Qualified Code(s): I10 - Essential (primary) hypertension Plan Patient underwent successful revascularization of [place] RCA post SVG anastomosis yesterday. Patient has stayed stable overnight.. Aspirin and Plavix for at least 1 year Echo shows normal LV systolic function No orthostatic hypotension noted Thank you for involving us with care of this patient. Patient is stable to be discharged from cardiology standpoint. Outpatient cardiology follow-up. Please call with questions Attestations Medical Necessity Statement*: Care expected to cross 2 midnights Coding Level of Care Code Acute Software Sales Consultant for Chg Fwd Diagnoses Acute non-ST elevation myocardial infarction (NSTEMI) I21.4 Syncope and collapse R55 Hyperlipidemia E78.5 Carotid artery disease I77.9 CAD (coronary artery disease) I25.10 Hypertension I10 Hypertension type: essential hypertension
[2022-05-27 10:52] LABS: Glucose Point of Care 314 mg/dL (70-110)
[2022-05-27 12:00] VITALS: BP 143/80
--- NOTE | 2022-05-27 12:31 | PC.SOCIAL ---
IMM Update pg 2 of IMM updated and reviewed w/ patient. Copy provided and Copy dated, initialed and placed in chart.
== END 2022-05-27 12:24 | disposition home or self-care (01) | DRG 247 ==
LOC: ER 23:21 → MEDSURG 23:31
PROVIDERS: Emergency Medicine; Internal Medicine; Admitting Provider Internal Medicine; Emergency Provider Emergency Medicine; PCP Pediatrics; Visit Provider Internal Medicine
PROC: 027034Z Dilation of Coronary Artery, One Artery with Drug-eluting Intraluminal Device, Percutaneous Approach (ICD-10-PCS; principal; 2022-05-26 08:00)
PROC: 027034Z Dilation of Coronary Artery, One Artery with Drug-eluting Intraluminal Device, Percutaneous Approach (ICD-10-PCS; 2022-05-26 08:00)
DX: I21.4 Non-ST elevation (NSTEMI) myocardial infarction (principal); I50.22 Chronic systolic (congestive) heart failure; I25.10 Atherosclerotic heart disease of native coronary artery without angina pectoris; Z95.1 Presence of aortocoronary bypass graft; I11.0 Hypertensive heart disease with heart failure; E11.9 Type 2 diabetes mellitus without complications; E78.5 Hyperlipidemia, unspecified; Z87.891 Personal history of nicotine dependence; Z79.82 Long term (current) use of aspirin; Z79.4 Long term (current) use of insulin
CPT/HCPCS: 36415; 36416; 70450; 71045; 80053; 80307; 82962; 83690; 83735; 83880; 84100; 84484; 85014; 85018; 85025; 85347; 85610; 85730; 93005; 93306; 93455; 94760; 96360; 96372; 97161; 97530; 99152; 99153; 99285; C1725; C1769; C1874; C1887; C1894; C9600; J1644; J1650; J1815; J2250; J3010; J7030; J7050; Q0163; Q9967

== ENCOUNTER → 2023-10-01 09:28 | Outpatient (BNVA) | payer MEDICARE, OTHER, SELFPAY | PROVIDERS: PCP Pediatrics; Visit Provider Nurse Practitioner Family | DX: I11.0 Hypertensive heart disease with heart failure (principal); I50.9 Heart failure, unspecified; I25.810 Atherosclerosis of coronary artery bypass graft(s) without angina pectoris; Z87.891 Personal history of nicotine dependence | CPT/HCPCS: 99214 ==

== ENCOUNTER → 2024-02-04 09:38 | Outpatient (BNVA) | payer MEDICARE, OTHER, SELFPAY | PROVIDERS: PCP Pediatrics; Visit Provider Nurse Practitioner Family | DX: I25.810 Atherosclerosis of coronary artery bypass graft(s) without angina pectoris (principal); I11.0 Hypertensive heart disease with heart failure; I50.22 Chronic systolic (congestive) heart failure; Z87.891 Personal history of nicotine dependence | CPT/HCPCS: 99214 ==

== ENCOUNTER → 2024-08-04 11:02 | Outpatient (BNVA) | payer MEDICARE, OTHER, SELFPAY | PROVIDERS: PCP Pediatrics; Visit Provider Internal Medicine Cardiovascular Disease | DX: I25.10 Atherosclerotic heart disease of native coronary artery without angina pectoris (principal); I11.0 Hypertensive heart disease with heart failure; I50.22 Chronic systolic (congestive) heart failure; Z95.0 Presence of cardiac pacemaker; Z95.1 Presence of aortocoronary bypass graft; E78.2 Mixed hyperlipidemia | CPT/HCPCS: 99214 ==

== ENCOUNTER → 2025-01-27 10:48 | Outpatient (BNVA) | payer MEDICARE, OTHER, SELFPAY | PROVIDERS: PCP Pediatrics; Visit Provider Internal Medicine | DX: Z45.018 Encounter for adjustment and management of other part of cardiac pacemaker (principal) | CPT/HCPCS: 93296 ==

== ENCOUNTER → 2025-03-30 11:37 | Outpatient (BNVA) | payer MEDICARE, OTHER, SELFPAY | PROVIDERS: PCP Pediatrics; Visit Provider Internal Medicine Cardiovascular Disease | DX: I25.10 Atherosclerotic heart disease of native coronary artery without angina pectoris (principal); E78.5 Hyperlipidemia, unspecified; I08.3 Combined rheumatic disorders of mitral, aortic and tricuspid valves; I10 Essential (primary) hypertension; Z95.0 Presence of cardiac pacemaker; Z95.1 Presence of aortocoronary bypass graft; I25.2 Old myocardial infarction | CPT/HCPCS: 99214 ==